=== PATIENT | male | born 1990 | race Caucasian/White ===

== ENCOUNTER → 2016-08-01 | Outpatient (CLI) | payer OTHER ==
--- NOTE | 2016-08-01 18:07 | XR ---
Thoracic spine HISTORY: Pain 3 views of the thoracic spine Thoracic vertebral bodies show preserved height, alignment, and bone mineralization. Disc spaces are maintained. No paraspinal mass. There is multilevel spondylosis. Kyphosis is centered at the lower th oracic spine. IMPRESSION: No acute fracture or subluxation is evident. Degenerative disc changes are present.
--- NOTE | 2016-08-01 18:08 | XR ---
Left shoulder HISTORY: Left shoulder pain 3 views of the left shoulder No comparisons The distal clavicle is slightly superiorly displaced in relation to the acromion. No fracture is evid ent. Left lung apex as visualized is normal. IMPRESSION: Correlate for acromioclavicular separation.
--- NOTE | 2016-08-01 18:20 | CT ---
EXAMINATION TYPE: CT cervical spine wo con DATE OF EXAM: 08/01/2016 5:44 PM COMPARISON: NONE HISTORY: Cervical sprain, injury CT DLP: 693.6 mGycm Automated exposure control for dose reduction was used. TECHNIQUE: CT scan of the cervical spine is obtained without contrast, axial images are obtained, sagittal and c oronal reformatted images are also reviewed. FINDINGS: Cervical spine is visualized in its entirety from C1 through upper thoracic levels, demonstrates sati sfactory alignment without evidence of acute fracture or dislocation. Prevertebral soft tissue appea rs within normal limits. The C1-C2 articulation is within normal limits on the coronal images. IMPRESSION: There is no acute fracture or dislocation evident in the cervical spine.
== END | disposition home or self-care (01) ==
LOC: RADCTMAIN 17:32
PROVIDERS: ATTEND Emergency Medicine
DX: M51.34 Other intervertebral disc degeneration, thoracic region (principal); S43.402A Unspecified sprain of left shoulder joint, initial encounter; S13.4XXS Sprain of ligaments of cervical spine, sequela
CPT/HCPCS: 72072; 72125

== ENCOUNTER → 2016-10-20 | Outpatient (CLI) | payer OTHER ==
[2016-10-20 18:56] LABS: Basophils % (A) 1 %; CH 30.7; CHCM 35.4; Eosinophils # (A) 0.2 k/uL (0-0.7); Eosinophils % (A) 4 %; HCT 46.8 % (39.0-53.0); HGB 16.2 gm/dL (13.0-17.5); Luc # (Auto) 0.08; Luc % (Auto) 1; Lymphocytes # (A) 2.1 k/uL (1.0-4.8); Lymphocytes % (A) 31 %; MCH 30.1 pg (25.0-35.0); MCHC 34.6 g/dL (31.0-37.0); MCV 87.1 fL (80.0-100.0); Mean Platelet Volume 8.9; Monocytes # (A) 0.3 k/uL (0-1.0); Monocytes % (A) 4 %; Neutrophils % (A) 59 %; RBC 5.37 m/uL (4.30-5.90); RDW 14.2 % (11.5-15.5); WBC 6.7 k/uL (3.8-10.6); WBC (Perox) 7.03
[2016-10-20 19:05] LABS: ALT 69 U/L (21-72); AST 45 U/L (17-59); Alkaline Phosphatase 67 U/L (38-126); Anion Gap 13 mmol/L; Blood Urea Nitrogen 13 mg/dL (9-20); Calcium 9.8 mg/dL (8.4-10.2); Carbon Dioxide 23 mmol/L (22-30); Chloride 107 mmol/L (98-107); Cholesterol 175 mg/dL (<200); Glucose 83 mg/dL (74-99); HDL Cholesterol 46 mg/dL (40-60); Non-African American GFR(MDRD) >60 (>60 ml/min/1.73 sqM); Potassium 4.6 mmol/L (3.5-5.1); Sodium 143 mmol/L (137-145); Total Bilirubin 0.7 mg/dL (0.2-1.3); Total Protein 7.6 g/dL (6.3-8.2); Triglycerides 152 mg/dL (<150)
== END ==
LOC: MMGSC 09:35
PROVIDERS: ATTEND Family Medicine
DX: I26.99 Other pulmonary embolism without acute cor pulmonale (principal); E66.9 Obesity, unspecified
CPT/HCPCS: 36415; 80053; 80061; 84443; 85025